=== PATIENT | female | born 2005 | race Caucasian/White ===

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

== ENCOUNTER 2023-02-08 15:38 | Emergency (ER) | payer BC ==
[2023-02-08] MEDS ORDERED: OLANZapine 5 MG Tab.DIS PO STA (16:36)
[2023-02-08 17:36] LABS: ACETAMINOPHEN <2.0 ug/mL
[2023-02-08 17:58] LABS: CARBON DIOXIDE,CO2 25.4 mmol/L (21.0-32.0); POTASSIUM,K 3.9 mmol/L (3.5-5.1)
[2023-02-08 18:27] LABS: CORONAVIRUS COVID-19 NAA NEGATIVE (NEGATIVE); INFLUENZA A NAA NEGATIVE (NEGATIVE); INFLUENZA B NAA NEGATIVE (NEGATIVE)
== END 2023-02-09 16:50 ==
LOC: MW.ED 15:38
DX: F15.10 Other stimulant abuse, uncomplicated (principal); F32.A Depression, unspecified; F41.9 Anxiety disorder, unspecified; R45.850 Homicidal ideations; E66.9 Obesity, unspecified; Z68.25 Body mass index [BMI] 25.0-25.9, adult; Z91.011 Allergy to milk products; Z91.018 Allergy to other foods; Z20.822 Contact with and (suspected) exposure to COVID-19
CPT/HCPCS: 0240U; 36415; 80053; 80143; 80179; 80305; 80307; 81003; 83735; 84439; 84443; 84481; 84702; 85025; 86706; 86803; 87340; 87389; 99285; A9270